=== PATIENT | female | born 1945 | race Caucasian/White ===

== ENCOUNTER 2017-09-15 07:30 | Day surgery (SDC) | payer MEDICARE, BC ==
[2017-09-15] MEDS ORDERED: PROPOFOL 500 MG/50 ML EMU IV ONE (07:31)
[2017-09-15] MEDS ORDERED: LIDOCAINE HCL 1% MPF SOL ONE (07:31)
[2017-09-15 09:14] VITALS: TEMP 97.8
[2017-09-15 09:45] VITALS: BP 165/80; PULSE 70; RESP 20; O2SAT 98
== END 2017-09-15 09:55 | disposition home or self-care (01) | DRG 951 ==
LOC: SURG 07:30
PROVIDERS: ATTEND Internal Medicine Gastroenterology
DX: Z12.11 Encounter for screening for malignant neoplasm of colon (principal); K57.30 Diverticulosis of large intestine without perforation or abscess without bleeding; Z80.0 Family history of malignant neoplasm of digestive organs; Z86.010 Personal history of colon polyps; K64.8 Other hemorrhoids
CPT/HCPCS: J2001; J2704